=== PATIENT | male | born 1960 | race Caucasian/White ===

== ENCOUNTER 2022-04-03 17:13 | Emergency (ER) | payer OTHER ==
[2022-04-03 17:22] VITALS: BP 137/82; PULSE 94; RESP 18; TEMP 98.1; BMI 26.5
== END 2022-04-03 19:09 | disposition home or self-care (01) ==
LOC: JERFT 17:13 → JER 17:13 → JERFT 19:09
DX: H61.22 Impacted cerumen, left ear (principal)
CPT/HCPCS: 99281-25

== ENCOUNTER 2022-04-30 04:44 | Emergency (ER) | payer OTHER ==
[2022-04-30 04:55] VITALS: BP 125/78; PULSE 94; RESP 18; TEMP 97.9; BMI 26.5
[2022-04-30] MEDS ORDERED: ACETAMINOPHEN 500 MG TABLET (FP) PO ONE (05:38)
[2022-04-30] MEDS ORDERED: ACETAMINOPHEN 500 MG TABLET (FP) ONE (05:40)
== END 2022-04-30 05:51 | disposition home or self-care (01) ==
LOC: JER 04:44
DX: T33.532A Superficial frostbite of left finger(s), initial encounter (principal); T33.531A Superficial frostbite of right finger(s), initial encounter
CPT/HCPCS: 99283-25

== ENCOUNTER 2023-08-17 03:52 | Day surgery (SDC) | payer OTHER ==
[2023-08-10 15:41] VITALS: BMI 26.5
[2023-08-17] MEDS ORDERED: LIDOCAINE 1%/EPI 1:100000 (20 ML MULTI DOSE VIAL) ONE ×2 (10:16→11:39)
[2023-08-17] MEDS ORDERED: PROPOFOL 20 ML ONE ×2 (10:41→12:01)
[2023-08-17] MEDS ORDERED: ROCURONIUM BROMIDE 50 MG/5 ML SYRINGE ONE (10:41)
[2023-08-17] MEDS ORDERED: BACITRACIN ZINC 15 GM TUBE TOPICAL OINTMENT ONE (10:43)
[2023-08-17] MEDS ORDERED: ACETAMINOPHEN INJECTION 100 ML IVPB ONE (10:43)
[2023-08-17] MEDS ORDERED: MIDAZOLAM HCL 2 MG/2 ML SINGLE DOSE VIAL ONE (11:24)
[2023-08-17] MEDS ORDERED: FENTANYL CITRATE/PF 50 MCG/ML VIAL ONE ×4 (11:29→13:15)
[2023-08-17] MEDS: ceFAZolin SODIUM 1 GM VIAL IVPB ONE ×2 (11:34)
[2023-08-17] MEDS ORDERED: ONDANSETRON 4 MG/2 ML VIAL ONE (11:38)
[2023-08-17] MEDS ORDERED: DEXAMETHASONE SOD PHOSPHATE 4 MG/1 ML VIAL ONE ×3 (11:38)
[2023-08-17] MEDS ORDERED: ceFAZolin SODIUM 1 GM VIAL ONE ×2 (11:40)
[2023-08-17] MEDS: OXYMETAZOLINE 0.05% NASAL SOLUTION 15 ML BOTTLE NS ONE ×2 (11:50)
[2023-08-17] MEDS: LIDOCAINE 1%/EPI 1:100000 (20 ML MULTI DOSE VIAL) IJ ONE ×2 (11:51)
[2023-08-17] MEDS ORDERED: SUGAMMADEX SODIUM 200 MG/2 ML VIAL ONE (11:53)
[2023-08-17] MEDS ORDERED: SEVOFLURANE 250 ML BTL ONE (12:01)
[2023-08-17] MEDS ORDERED: LIDOCAINE HCL/PF 2% SDV 5ML VIAL ONE (12:11)
[2023-08-17] MEDS ORDERED: ONDANSETRON 4 MG/2 ML VIAL IVPUSH PRN (12:43)
[2023-08-17] MEDS ORDERED: oxyCODONE HCL 5 MG TABLET PO PRN (12:43)
[2023-08-17] MEDS ORDERED: LACTATED RINGERS SOLUTION 1,000 ML IV SCH (12:45)
[2023-08-17 15:08] VITALS: BP 130/69; PULSE 78; RESP 20; TEMP 97.8
== END 2023-08-17 15:00 | disposition home or self-care (01) ==
LOC: JASU-SURG 03:52
PROVIDERS: ATTEND Otolaryngology
PROC: 09BM8ZZ Excision of Nasal Septum, Via Natural or Artificial Opening Endoscopic (ICD-10-PCS; principal; 2023-08-17 11:30)
PROC: 09TL8ZZ Resection of Nasal Turbinate, Via Natural or Artificial Opening Endoscopic (ICD-10-PCS; 2023-08-17 11:30)
DX: J34.2 Deviated nasal septum (principal); J34.3 Hypertrophy of nasal turbinates; R09.81 Nasal congestion
CPT/HCPCS: 88304-TC; 88311-TC; 94760; J0131